=== PATIENT | male | born 1975 | race African-American/Black ===

== ENCOUNTER 2017-01-21 19:54 | Emergency (ER) | payer BC ==
--- NOTE | 2017-01-21 20:05 | PDOC ---
History of Present Illness <Danielle Crowley - Last Filed: 01/21/17 20:40> <Traci Martin - Last Filed: 01/22/17 06:46> - General Chief Complaint: Irregular Heart Beat Stated Complaint: IRREGULAR HEART BEAT X 3 WEEKS Time Seen by Provider: 01/21/17 19:55 - History of Present Illness Initial Comments: 01/21/17 20:40 The patient is a 41 year old male, with a significant past medical history of hypertension, coming to the emergency department today complaining of heart palpitations for 3 weeks. Patient describes his heartbeats as sudden onset , intermittent and rapid. He expressed that his palpitations usually occurs when he thinks about his job stressors. Patient states that he has been under a lot of stress recently at his job. He says that he wakes up at 4 in the morning and commutes 2 hours to and from work. He also admits to drinking lots of caffeinated beverages (coffee, espresso, Dr. Tirado, frappes) in the morning to get him through the workday. Patient admits to associated lightheadedness. Patient admits to SOB when walking up stairs but not necessarily in conjunction with his heart palpitations. He does not have a PCP so he came to the emergency room because his girlfriend was concerned. Patient has a history of hypertension and has been taking his girlfriends amlodipine ever since he ran out of medication. Patient also states that he gained around 30 pounds recently due to the stress. He denies associated chest pain or pressure, difficulty breathing, excessive sweating. He denies a history of diabetes, high cholesterol. He denies a family history of heart disease. (Danielle Crowley) Past History <Danielle Crowley - Last Filed: 01/21/17 20:40> <Traci Martin - Last Filed: 01/22/17 06:46> - Past Medical History Allergies/Adverse Reactions: Allergies Allergy/AdvReac Type Severity Reaction Status Date / Time acetaminophen [From Percocet] AdvReac Vomiting Verified 01/21/17 19:56 oxycodone HCl [From Percocet] AdvReac Vomiting Verified 01/21/17 19:56 Home Medications: Ambulatory Orders Amlodipine Besylate 10 mg PO DAILY 01/21/17 Amlodipine Besylate [Norvasc -] 10 mg PO DAILY #20 tablet 01/21/17 Review of Systems <Danielle Crowley - Last Filed: 01/21/17 20:40> <Traci Martin - Last Filed: 01/22/17 06:46> - Review of Systems Comments:: 01/21/17 20:41 GENERAL/CONSTITUTIONAL: No fever or chills. No weakness. HEAD, EYES, EARS, NOSE AND THROAT: No change in vision. No ear pain or discharge. No sore throat. CARDIOVASCULAR: + heart palpitations. No chest pain or shortness of breath. RESPIRATORY: No cough, wheezing, or hemoptysis. GASTROINTESTINAL: No nausea, vomiting, diarrhea or constipation. GENITOURINARY: No dysuria, frequency, or change in urination. MUSCULOSKELETAL: No joint or muscle swelling or pain. No neck or back pain. SKIN: No rash NEUROLOGIC: No headache, vertigo, loss of consciousness, or change in strength/ sensation. ENDOCRINE: No increased thirst. No abnormal weight change. HEMATOLOGIC/LYMPHATIC: No anemia, easy bleeding, or history of blood clots. ALLERGIC/IMMUNOLOGIC: No hives or skin allergy. (Danielle Crowley) *Physical Exam <Danielle Crowley - Last Filed: 01/21/17 20:40> <Traci Martin - Last Filed: 01/22/17 06:46> - Vital Signs Last Vital Signs Temp Pulse Resp BP Pulse Ox 98.9 F 60 16 150/103 100 01/21/17 19:59 01/21/17 19:59 01/21/17 19:59 01/21/17 21:43 01/21/17 19:59 - Physical Exam Comments: 01/21/17 20:41 GENERAL: Obese. Awake, alert, and fully oriented, in no acute distress HEAD: No signs of trauma EYES: PERRLA, EOMI, sclera anicteric, conjunctiva clear ENT: Auricles normal inspection, hearing grossly normal, nares patent, oropharynx clear without exudates. Moist mucosa NECK: Normal ROM, supple, no lymphadenopathy, JVD, or masses LUNGS: Breath sounds equal, clear to auscultation bilaterally. No wheezes, and no crackles HEART: Regular rate and rhythm, normal S1 and S2, no murmurs, rubs or gallops ABDOMEN: Soft, nontender, normoactive bowel sounds. No guarding, no rebound. No masses EXTREMITIES: Normal range of motion, no edema. No clubbing or cyanosis. No cords, erythema, or tenderness NEUROLOGICAL: Cranial nerves II through XII grossly intact. Normal speech, normal gait SKIN: Warm, Dry, normal turgor, no rashes or lesions noted. (Danielle Crowley) Heart Score/ECG Review <Danielle Crowley - Last Filed: 01/21/17 20:40> <Traci Martin - Last Filed: 01/22/17 06:46> - ECG Impressions Comment:: 01/21/17 20:07 EKG interpretation Sinus bradycardia Left axis deviation Voltage criteria for left ventricular hypertrophy T wave abnormality, consider inferolateral ischemia Abnormal ECG Vent rate. 50 bpm (Danielle Crowley) ED Treatment Course - LABORATORY CBC & Chemistry Diagram: 01/21/17 20:30 01/21/17 20:30 <Danielle Crowley - Last Filed: 01/21/17 20:40> - LABORATORY CBC & Chemistry Diagram: 01/21/17 20:30 01/21/17 20:30 <Traci Martin - Last Filed: 01/22/17 06:46> - ADDITIONAL ORDERS Additional order review: Laboratory Results 01/21/17 20:30 Sodium 138 Potassium 3.8 Chloride 101 Carbon Dioxide 29 H Anion Gap 8 BUN 14 Creatinine 1.1 Creat Clearance w eGFR > 60 Random Glucose 81 Calcium 9.4 Total Bilirubin 0.5 AST 20 ALT 36 Alkaline Phosphatase 74 Creatine Kinase 199 Creatine Kinase Index 0.9 CK-MB (CK-2) 1.9 Troponin I < 0.03 L Total Protein 7.6 Albumin 4.6 01/21/17 20:30 RBC 4.93 MCV 85.8 MCHC 33.8 RDW 12.5 MPV 7.4 L Neutrophils % No Result Required. Lymphocytes % No Result Required. Progress Note <Danielle Crowley - Last Filed: 01/21/17 20:40> <Traci Martin - Last Filed: 01/22/17 06:46> - Progress Note Progress Note: Documentation has been prepared under my direction and personally reviewed by me in its entirety. I attest that this documented accurately reflects all work, treatment, procedures and medical decision making performed by me. (Traci Martin) *DC/Admit/Observation/Transfer <Danielle Crowley - Last Filed: 01/21/17 20:40> <Traci Martin - Last Filed: 01/22/17 06:46> Diagnosis at time of Disposition: Hypertension - Discharge Dispostion Disposition: HOME Condition at time of disposition: Stable - Prescriptions Prescriptions: Amlodipine Besylate [Norvasc -] 10 mg PO DAILY #20 tablet - Referrals Referrals: Austin Cabrera MD [Staff Physician] - Tacos Gerardo MD [Staff Physician] - - Patient Instructions Printed Discharge Instructions: High Blood Pressure Additional Instructions: Decrease amount of caffeine in diet as discussed Limit the amount of salt in your diet Amlodipine 10 mg daily Return to ER if you have chest pain/persistent palpitations/lightheadedness Follow-up with (general medical doctor)/ ([employer] [employer] policy specialist) within 1-2 weeks - Attestations Scribe Attestion: 01/21/17 20:42 Documentation prepared by Danielle Crowley, acting as biomedical engineering aide for Traci Martin MD (Danielle Crowley)
[2017-01-21 20:21] VITALS: PULSE 60; TEMP 98.9; BMI 39.2
[2017-01-21 20:53] LABS: MCHC 33.8 g/dl (32.0-35.9); MEAN CELL VOLUME 85.8 fl (80-96); MEAN PLT VOLUME 7.4 fl (7.5-11.1); PLATELET COUNT 234 K/MM3 (134-434); RDW 12.5 % (11.9-15.9); WHITE BLOOD COUNT 5.7 K/mm3 (4.0-10.8)
[2017-01-21 21:13] LABS: TROPONIN I (DFP) < 0.03 ng/ml (0.03-0.50)
[2017-01-21 21:22] LABS: ALBUMIN 4.6 g/dl (3.5-5.0); ALK PHOS 74 U/L (32-92); ANION GAP 8 (8-16); BILIRUBIN,TOTAL 0.5 mg/dl (0.2-1.0); CALCIUM 9.4 mg/dl (8.4-10.2); CO2 29 mmol/L (22-28); CPK 199 IU/L (39-308); CREATININE 1.1 mg/dl (0.6-1.3); GLUCOSE,RANDOM 81 mg/dl (74-106); SGOT/AST 20 U/L (10-42); SGPT/ALT 36 U/L (10-40); TOT PROT 7.6 g/dl (6.4-8.3)
[2017-01-21 21:25] LABS: PLATELET ESTIMATE ADEQUATE (NORMAL)
[2017-01-21 21:43] VITALS: BP 150/103
--- NOTE | 2017-01-22 20:28 | EKG ---
Test Reason : Blood Pressure : / mmHG Vent. Rate : 050 BPM Atrial Rate : 050 BPM P-R Int : 176 ms QRS Dur : 100 ms QT Int : 460 ms P-R-T Axes : 046 -34 -54 degrees QTc Int : 419 ms SINUS BRADYCARDIA LEFT AXIS DEVIATION ATRIAL ABNORMALITY VOLTAGE CRITERIA FOR LEFT VENTRICULAR HYPERTROPHY T WAVE ABNORMALITY, CONSIDER INFEROLATERAL ISCHEMIA ABNORMAL ECG NO PREVIOUS ECGS AVAILABLE NO CLINICAL INFORMATION IS AVAILABLE FOLLOW UP TRACING ARE RECOMMENDED Confirmed by LUISA LEBLANC MD ([id number]) on 01/22/2017 8:28:19 PM Referred By: SAMANTA Confirmed By:LUISA LEBLANC MD
== END 2017-01-21 21:50 | disposition home or self-care (01) ==
LOC: FER 19:54
DX: I10 Essential (primary) hypertension (principal)
CPT/HCPCS: 36415; 80053; 82553; 84484; 85025; 93005; 99281-25